=== PATIENT | male | born 2000 | race Caucasian/White ===

== ENCOUNTER 2019-01-04 07:22 | Emergency (ER) | payer MEDICARE, MEDICAID ==
[~2019-01-04] VITALS: Ht 172.7 cm; Wt 100.0 kg
[~2019-01-04 07:22] MED LIST: DEXT15SY PO; ONDA4TAB6 PO
[2019-01-04 07:33] VITALS: BP 137/77
[2019-01-04] MEDS ORDERED: COROTSUS OT (07:44)
== END 2019-01-04 08:05 | disposition home or self-care (01) ==
LOC: ER 07:22
DX: H60.92 Unspecified otitis externa, left ear (principal); Z98.890 Other specified postprocedural states; Z88.2 Allergy status to sulfonamides; Z79.899 Other long term (current) drug therapy
CPT/HCPCS: 99283

== ENCOUNTER 2019-09-26 12:02 | Emergency (ER) | payer MEDICARE, MEDICAID ==
[~2019-09-26] VITALS: Ht 172.7 cm; Wt 100.0 kg
[~2019-09-26 12:02] MED LIST changes: +COROTSUS OT
[2019-09-26] MEDS ORDERED: ondansetron 4mg rapidly disintigrating tab PO ONE (13:50)
[2019-09-26] MEDS ORDERED: acetaminophen 325mg tablet PO ONE (13:50)
[2019-09-26] MEDS ORDERED: DOXY100C76 PO (14:37)
[2019-09-26 15:41] VITALS: BP 140/81
== END 2019-09-26 15:43 | disposition home or self-care (01) ==
LOC: ER 12:02
DX: R91.8 Other nonspecific abnormal finding of lung field (principal); R06.00 Dyspnea, unspecified; R07.89 Other chest pain; R06.02 Shortness of breath; Z88.2 Allergy status to sulfonamides; Z79.899 Other long term (current) drug therapy; Z98.890 Other specified postprocedural states
CPT/HCPCS: 71046; 99283

== ENCOUNTER 2020-06-02 18:43 | Emergency (ER) | payer MEDICARE, MEDICAID ==
[~2020-06-02] VITALS: Ht 172.7 cm; Wt 114.5 kg
--- NOTE | 2020-06-02 18:50 | NUR ---
pt has developmental delay and cerebral palsy - Mother cleared to come back to room with pt
--- NOTE | 2020-06-02 19:17 | NUR ---
Patient resting comfortably in bed with mother at bedside.
--- NOTE | 2020-06-02 19:44 | NUR ---
Patient splint applied by audrey, CSM intact. Patient showed safe ability to ambulated on crutches.
[2020-06-02 19:45] VITALS: BP 139/88
== END 2020-06-02 19:48 | disposition home or self-care (01) ==
LOC: ER 18:43
DX: S93.491A Sprain of other ligament of right ankle, initial encounter (principal); M25.571 Pain in right ankle and joints of right foot; Z98.890 Other specified postprocedural states; Z88.2 Allergy status to sulfonamides; Z79.2 Long term (current) use of antibiotics; W18.39XA Other fall on same level, initial encounter; Y93.89 Activity, other specified; Y92.89 Other specified places as the place of occurrence of the external cause; Y99.8 Other external cause status
CPT/HCPCS: 29515; 73630; 99284

== ENCOUNTER 2021-07-29 13:41 | Emergency (ER) | payer MEDICARE, MEDICAID ==
[~2021-07-29] VITALS: Ht 175.3 cm; Wt 115.9 kg
[2021-07-29 14:10] VITALS: BP 128/79
[2021-07-29] MEDS ORDERED: FAMO-128 PO (14:25)
[2021-07-29] MEDS ORDERED: PRED20TA PO (14:25)
== END 2021-07-29 14:30 | disposition home or self-care (01) ==
LOC: ER 13:41
DX: L23.9 Allergic contact dermatitis, unspecified cause (principal); Z88.2 Allergy status to sulfonamides; Z79.899 Other long term (current) drug therapy
CPT/HCPCS: 99283

== ENCOUNTER → 2022-01-11 17:38 | Emergency (ER) | payer MEDICARE, MEDICAID ==
[~2022-01-11] VITALS: Ht 172.7 cm; Wt 129.6 kg
[~2022-01-11 17:38] MED LIST changes: +FAMO-128 PO; +TETanus/Pertussis (Acell)/Diphther VAC/PF (Tdap-Adult) 0.5ml syringe IMVAC ONE
[2022-01-11 17:50] VITALS: BP 163/102
== END | disposition home or self-care (01) ==
LOC: ER 17:38
DX: S61.213A Laceration without foreign body of left middle finger without damage to nail, initial encounter (principal); Z88.2 Allergy status to sulfonamides; Z79.2 Long term (current) use of antibiotics; Z79.899 Other long term (current) drug therapy; W26.0XXA Contact with knife, initial encounter; Y93.G3 Activity, cooking and baking; Y92.89 Other specified places as the place of occurrence of the external cause; Y99.8 Other external cause status
CPT/HCPCS: 12001; 73120; 90471; 90715; 99283

== ENCOUNTER 2022-05-11 18:34 | Emergency (ER) | payer MEDICARE, MEDICAID ==
[~2022-05-11] VITALS: Ht 172.7 cm; Wt 122.0 kg
[~2022-05-11 18:34] MED LIST changes: -TETanus/Pertussis (Acell)/Diphther VAC/PF (Tdap-Adult) 0.5ml syringe IMVAC ONE
[2022-05-11 19:16] VITALS: BP 160/69
== END 2022-05-11 20:54 | disposition home or self-care (01) ==
LOC: ER 18:35
DX: S90.31XA Contusion of right foot, initial encounter (principal); M79.671 Pain in right foot; Z98.890 Other specified postprocedural states; Z88.2 Allergy status to sulfonamides; Z79.899 Other long term (current) drug therapy; X58.XXXA Exposure to other specified factors, initial encounter; Y93.89 Activity, other specified; Y92.89 Other specified places as the place of occurrence of the external cause; Y99.8 Other external cause status
CPT/HCPCS: 73630; 99283

== ENCOUNTER 2023-12-28 21:20 | Emergency (ER) | payer MEDICARE, MEDICAID ==
[~2023-12-28] VITALS: Ht 172.7 cm; Wt 118.0 kg
[2023-12-28 21:31] VITALS: BP 153/90; PULSE 80; TEMP 98.4; O2SAT 94
[2023-12-28] MEDS ORDERED: ketorolac trometh inj. 60 MG/2 ML VIAL IM ONE (22:25)
[2023-12-28 23:04] VITALS: RESP 16
[2023-12-28] MEDS: ketorolac tromethamine 15mg/ml inj. IM ONE (23:04)
== END 2023-12-28 23:37 | disposition home or self-care (01) ==
LOC: ER 21:20
DX: S20.224A Contusion of middle back wall of thorax, initial encounter (principal); Z88.2 Allergy status to sulfonamides; W18.30XA Fall on same level, unspecified, initial encounter; Y93.64 Activity, baseball; Y92.22 Religious institution as the place of occurrence of the external cause; Y99.8 Other external cause status
CPT/HCPCS: 72080; 96372; 99283; J1885

== ENCOUNTER 2024-09-02 13:36 | Emergency (ER) | payer MEDICARE, MEDICAID ==
[~2024-09-02] VITALS: Ht 172.7 cm; Wt 115.5 kg
[2024-09-02 13:40] VITALS: BP 134/89; PULSE 76; RESP 16; TEMP 97.9; O2SAT 97
[2024-09-02] MEDS ORDERED: NIRM1TAB7 PO (14:44)
== END 2024-09-02 14:59 | disposition home or self-care (01) ==
LOC: ER 13:36
DX: U07.1 COVID-19 (principal); Z88.2 Allergy status to sulfonamides
CPT/HCPCS: 99283